=== PATIENT | male | born 1960 | race Caucasian/White ===

== ENCOUNTER 2021-11-05 08:15 | Inpatient (IN) | payer MEDICARE ==
--- NOTE | 2021-11-05 09:26 | ED Physician Documentation ---
History of Present Illness - Stated complaint Stated Complaint: C+ SHORT OF BREATH - Chief complaint Chief Complaint: Resp - History obtained from History obtained from: Patient - History of Present Illness Timing: Today Pain level max: 0 Pain level now: 0 - Additonal information Additional information: Patient is a 61-year-old male who presents to the emergency department with increasing breathing difficulties over the past 3 weeks. He states he was diagnosed with COVID-19 3 weeks ago. He is unvaccinated. He states that the fevers and cough have improved but the dyspnea has continued. He does have a history of crack cocaine use, has been clean for over 10 years. He also smokes cigarettes, but quit about 3 weeks ago when he became too sick to smoke. Worse with exertion, better with rest. Does not use home oxygen. Has used inhalers in the past when he has been sick. Review of Systems Ten Systems: 10 systems reviewed and negative Constitutional: denies: Fever, Chills Ears: denies: Ear pain Nose: denies: Rhinorrhea / runny nose, Congestion Throat: denies: Sore throat Cardiac: denies: Chest pain / pressure Respiratory: reports: Dyspnea. denies: Cough, Hemoptysis, Wheezing GI: denies: Abdominal Pain, Nausea, Vomiting, Diarrhea Skin: denies: Rash Musculoskeletal: denies: Neck pain, Back pain Neurologic: denies: Headache PD PAST MEDICAL HISTORY - Past Medical History Past Medical History: Yes Cardiovascular: High cholesterol - Allergies Allergies/Adverse Reactions: Allergies Allergy/AdvReac Type Severity Reaction Status Date / Time No Known Drug Allergies Allergy Verified 11/05/21 08:55 - Social History Does the pt smoke?: Yes Smoking Status: Current every day smoker Does the pt have substance abuse?: No Substance Use and Type: Cocaine/Crack PD ED PE NORMAL - Vitals Vital signs reviewed: Yes - General General: Alert and oriented X 3, No acute distress - HEENT HEENT: Moist mucous membranes - Neck Neck: Supple, no meningeal sign - Cardiac Cardiac: RRR, Strong equal pulses - Respiratory Respiratory: No respiratory distress, Clear bilaterally - Abdomen Abdomen: Soft, Non tender, Non distended - Derm Derm: Warm and dry - Neuro Neuro: Alert and oriented X 3 Results - Vitals Vitals: Vital Signs - 24 hr 11/05/21 11/05/21 11/05/21 08:56 09:04 09:34 Temperature 36.5 C Heart Rate 66 66 60 Respiratory 30 H 26 H 17 Rate Blood Pressure 137/78 H 126/80 128/70 O2 Saturation 80 L 93 95 11/05/21 11/05/21 11/05/21 10:04 10:30 11:00 Temperature 36.6 C Heart Rate 61 63 62 Respiratory 14 16 62 H Rate Blood Pressure 112/79 115/78 104/76 O2 Saturation 93 93 94 Oxygen O2 Source Nasal cannula Oxygen Flow Rate 2 - Labs Labs: Laboratory Tests 11/05/21 11/05/21 11/05/21 09:34 09:40 09:40 WBC 6.7 RBC 4.19 L Hgb 14.2 Hct 42.7 MCV 101.9 H MCH 33.9 H MCHC 33.3 RDW 14.1 Plt Count 276 MPV 10.3 Neut # (Auto) 4.7 Lymph # (Auto) 1.0 L [place] # (Auto) 0.5 Eos # (Auto) 0.4 Baso # (Auto) 0.1 Absolute Nucleated RBC 0.00 Nucleated RBC % 0.0 Sodium 141 Potassium 4.1 Chloride 105 Carbon Dioxide 27 Anion Gap 9.0 BUN 19 Creatinine 1.1 Estimated GFR (MDRD) 68 L Glucose 107 H Lactic Acid Calcium 9.0 Total Bilirubin 0.9 AST 32 ALT 42 Alkaline Phosphatase 84 Total Protein 7.0 Albumin 3.6 Globulin 3.4 Albumin/Globulin Ratio 1.1 Lipase 31 Nasal Adenovirus (PCR) NOT DETECTED Nasal B. parapertussis DNA (PCR) NOT DETECTED Nasal Coronavir 229E PCR NOT DETECTED Nasal Coronavir HKU1 PCR NOT DETECTED Nasal Coronavir NL63 PCR NOT DETECTED Nasal Coronavir OC43 PCR NOT DETECTED Nasal Enterovir/Rhinovir PCR NOT DETECTED Nasal Influenza B PCR NOT DETECTED Nasal Influenza A PCR NOT DETECTED Nasal Parainfluen 1 PCR NOT DETECTED Nasal Parainfluen 2 PCR NOT DETECTED Nasal Parainfluen 3 PCR NOT DETECTED Nasal Parainfluen 4 PCR NOT DETECTED Nasal RSV (PCR) NOT DETECTED Nasal B.pertussis DNA PCR NOT DETECTED Nasal C.pneumoniae (PCR) NOT DETECTED Shane Human Metapneumo PCR NOT DETECTED Nasal M.pneumoniae (PCR) NOT DETECTED Nasal SARS-CoV-2 (PCR) NOT DETECTED 11/05/21 09:40 WBC RBC Hgb Hct MCV MCH MCHC RDW Plt Count MPV Neut # (Auto) Lymph # (Auto) [place] # (Auto) Eos # (Auto) Baso # (Auto) Absolute Nucleated RBC Nucleated RBC % Sodium Potassium Chloride Carbon Dioxide Anion Gap BUN Creatinine Estimated GFR (MDRD) Glucose Lactic Acid 1.5 Calcium Total Bilirubin AST ALT Alkaline Phosphatase Total Protein Albumin Globulin Albumin/Globulin Ratio Lipase Nasal Adenovirus (PCR) Nasal B. parapertussis DNA (PCR) Nasal Coronavir 229E PCR Nasal Coronavir HKU1 PCR Nasal Coronavir NL63 PCR Nasal Coronavir OC43 PCR Nasal Enterovir/Rhinovir PCR Nasal Influenza B PCR Nasal Influenza A PCR Nasal Parainfluen 1 PCR Nasal Parainfluen 2 PCR Nasal Parainfluen 3 PCR Nasal Parainfluen 4 PCR Nasal RSV (PCR) Nasal B.pertussis DNA PCR Nasal C.pneumoniae (PCR) Shane Human Metapneumo PCR Nasal M.pneumoniae (PCR) Nasal SARS-CoV-2 (PCR) - Rads (name of study) cxr Radiology: Final report received, EMP read contemporaneously, See rad report (B pneumonia) PD MEDICAL DECISION MAKING - ED course Complexity details: reviewed results, re-evaluated patient, considered differential, d/w patient ED course: 61-year-old male with 3 weeks of Covid illness. No fevers. No cough but does have continuing dyspnea. He appears to have bilateral pneumonia on chest x-ray. Unclear if this is bacterial or viral pneumonia. He is continuing to be hypoxic and requiring supplemental oxygen. Does not normally require oxygen. He is out of the window for MAB therapy. He is also requiring supplemental oxygen so would not qualify for that either. We will place the patient in the hospital for further care. Discussed the case with Dr. Norris, hospitalist accepts. Antibiotics held at this time given that this is unclear if this is bacterial or viral. This document was made in part using voice recognition software. While efforts are made to proofread this document, sound alike and grammatical errors may occur. Departure - Departure Disposition: 64 [facility] DC/Xfer Clinical Impression: Hypoxemia, COVID-19 Pneumonia Qualifiers: Pneumonia type: due to unspecified organism Laterality: bilateral Lung location: lower lobe of lung Qualified Code(s): J18.9 - Pneumonia, unspecified organism Condition: Stable
[2021-11-05 09:49] LABS: BASOPHILS # (AUTO) 0.1 10^3/uL (0.0-0.1); BASOPHILS % (AUTO) 0.9 %; EOSINOPHILS # (AUTO) 0.4 10^3/uL (0.0-0.7); EOSINOPHILS % (AUTO) 6.6 %; HCT - HEMATOCRIT 42.7 % (42.0-52.0); HGB - HEMOGLOBIN 14.2 g/dL (14.0-18.0); MEAN CORPUSCULAR HEMOGLOBIN 33.9 pg (27.0-31.0); MEAN CORPUSCULAR HGB CONC 33.3 g/dL (32.0-36.0); MEAN CORPUSCULAR VOLUME 101.9 fL (80.0-94.0); MEAN PLATELET VOLUME 10.3 fL (7.4-11.4); MONOCYTES # (AUTO) 0.5 10^3/uL (0.0-1.0); MONOCYTES % (AUTO) 7.3 %; NEUTROPHILS # (AUTO) 4.7 10^3/uL (1.5-6.6); NEUTROPHILS % (AUTO) 69.9 %; PLT - PLATELET COUNT 276 10^3/uL (130-450); RED BLOOD COUNT 4.19 10^6/uL (4.70-6.10); RED CELL DISTRIBUTION WIDTH 14.1 % (12.0-15.0); WHITE BLOOD COUNT 6.7 x10^3/uL (4.8-10.8)
[2021-11-05 10:04] LABS: ALBUMIN 3.6 g/dL (3.2-5.5); ALBUMIN/GLOBULIN RATIO 1.1 (1.0-2.2); BILIRUBIN,TOTAL 0.9 mg/dL (0.2-1.0); CREATININE 1.1 mg/dL (0.6-1.2); POTASSIUM 4.1 mmol/L (3.5-5.0)
--- NOTE | 2021-11-05 10:15 | XRAY Report ---
PROCEDURE: Chest 1 View X-Ray INDICATIONS: hypoxia, dyspnea, +covid TECHNIQUE: One view of the chest was acquired. COMPARISON: None FINDINGS: Surgical changes and devices: None. Lungs and pleura: No pleural effusions or pneumothorax. Moderate bilateral basilar predominant retic ulonodular opacity. Mediastinum: Mediastinal contours appear normal. Heart size is normal. Bones and chest wall: No suspicious bony lesions. Overlying soft tissues appear unremarkable. IMPRESSION: Moderate bilateral pneumonia. Reviewed by: Xander Brennan MD on 11/05/2021 9:14 AM [facility] Approved by: Xander Brennan MD on 11/05/2021 9:14 AM [facility] Station ID: [id number]
[2021-11-05 10:45] LABS: CORONAVIRUS 229E-RESP PCR NOT DETECTED; CORONAVIRUS HKU1-RESP PCR NOT DETECTED
[2021-11-05 10:46] LABS: B. PARAPERTUSSIS- RESP PCR PAN NOT DETECTED; B. PERTUSSIS- RESP PCR PANEL NOT DETECTED; C. PNEUMONIAE- RESP PCR PANEL NOT DETECTED; CORONAVIRUS NL63-RESP PCR NOT DETECTED; CORONAVIRUS OC43-RESP PCR NOT DETECTED; HUMAN METAPNEUMOVIRUS NOT DETECTED; INFLUENZA A- RESP PCR PANEL NOT DETECTED; INFLUENZA B - RESP PCR PANEL NOT DETECTED; M. PNEUMONIAE- RESP PCR PANEL NOT DETECTED; PARAINFLUENZA VIRUS 1 NOT DETECTED; PARAINFLUENZA VIRUS 2 NOT DETECTED; PARAINFLUENZA VIRUS 3 NOT DETECTED; PARAINFLUENZA VIRUS 4 NOT DETECTED; RHINOVIRUS/ENTEROVIRUS NOT DETECTED; RSV- RESP PCR PANEL NOT DETECTED; SARS-CoV-2 -RESP PCR PANEL NOT DETECTED
[2021-11-05] MEDS ORDERED: ONDANSETRON ODT 4 MG TABLET TL PRN (11:21)
[2021-11-05] MEDS ORDERED: ONDANSETRON 4 MG/2 ML VIAL IVP PRN (11:21)
[2021-11-05] MEDS ORDERED: SODIUM CHLORIDE FLUSH 0.9% 10 ML SYRINGE IVP PRN (11:21)
[2021-11-05] MEDS ORDERED: ACETAMINOPHEN 325 MG TABLET PO PRN (11:21)
--- NOTE | 2021-11-05 11:36 | HISTORY & PHYSICAL EXAMINATION ---
Chief Complaint - Chief Complaint Chief Complaint: short of breath History of Present Illness - Admitted From Admitted From:: home - History Obtained From Records Reviewed: [facility] History obtained from: patient and Dr. Guillory Exam Limitations: none - History of Present Illness HPI Comment/Other: The patient lives in [facility] and is here visiting [facility] for his time share that he comes to every quarter. He became ill with Covid about 4 weeks ago. Had it for about a week when he self tested from an [id number] test and Covid positive. At that time he had severe fever, muscle aches, loss of smell and taste, stopped eating. Lost about 28 pounds. Appetite is slowly coming back. The cough is been nonstop. And he has been exhausted and short of breath. No real phlegm production. is been trying to convince him to be seen for quite some time but he drove to the [place] for vacation, and then decided to check his pulse oximeter here. When he initially checked it it was 78%. Sometimes he can get it up to 85 to 88%. Today he was so short of breath he finally came in. In triage he was with labored respirations. O2 sat was 80% and oxygen was placed immediately. He smokes on a daily basis. Stop smoking the day he got sick with Covid. He started smoking at the age of 30 and smokes a pack a day. He is also a cocaine abuser in the past. Started snorting cocaine at the age of 16. Then he started smoking cocaine at the age of 30 and smoked daily until the age of 50. He is 11 years past that. He has psoriatic arthritis and takes methotrexate on a daily basis with folic acid.He is unvaccinated as a conscious decision. His 's cousin who is a mix chemist got the Covid vaccine and 3 days later. He just "dropped ". Pathology showed that it was related to hypercoagulable disorder from the vaccine. Ever since then the family's been pretty rattled and he just felt like he was not a candidate nor his . In the emergency room temperature was 36.5. Heart rate 66. Respirations 30. Blood pressure 137/78. O2 sat 80%. Chest x-ray shows bilateral infiltrates. He is SARS Covid negative on our respiratory PCR panel. White cell count is normal at 6.7. INR is 1.3. D-dimer 515. History - Past Medical History Cardiovascular: reports: High cholesterol Respiratory: reports: Other (Probable inhalation injury from constant inhalation of cocaine) Neuro: reports: None Endocrine/Autoimmune: reports: None GI: reports: None : reports: None HEENT: reports: None Psych: reports: Anxiety, Bipolar disorder (Very severe during his teen years. Most likely why he did substance abuse. Once he got older and stopped abusing substances at the age of 50, he has not needed medications. He last saw psychiatrist about 11 years ago.), Obsessive compulsive disorder Musculoskeletal: reports: Other (Psoriatic arthritis for which he takes methotrexate, folic acid) Derm: reports: Psoriasis MRSA Hx?: No - Past Surgical History Ortho: reports: Other (Right thumb tendon tear at the age of 3) - Family & Social History Family History Comment/Other: Mom is 91 years old, porcine valve replacement, status post pacemaker, chronic congestive heart failure. Dad at age 58 in a car accident. 2 sisters. Both obese, diabetic. One had heart ventricular repair to improve chamber size and pump function, and bariatric surgery. 1 brother has also had a valve repair, arrhythmia, congestive heart failure. One child who is healthy Living arrangement: At home Living Situation: With spouse/s.o. Social History Notes: 1 pack/day smoker starting at the age of 30 and quit 30 days ago. Regular cocaine user with snorting starting at the age of 16, then started smoking it until the age of 50. Occasionally used methamphetamines but he did not like it and did not do it more than once. He shot it up once. He drinks 1 beer every 6 months. He was a binge drinker in high school. Did not d rink very much once he started doing cocaine. 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 from his first . his second 18 years ago. He was able to stop doing substance abuse when got entered into his life. When he first quit he was 172 pounds, and went all the way up to 224 pounds until Covid got a hold of him. - Substance History Use: Uses substance without health or social issues: Tobacco Abuse: Recurrent use of substance despite neg consequences: NONE Dependence: Experiences withdrawal or developed tolerances: NONE - POLST Patient has POLST: No POLST Status: Full Code Meds/Allgy - Home Medications Home Medications: Ambulatory Orders Medication Instructions Recorded Confirmed Atorvastatin [Lipitor] 20 mg PO QPM 11/05/21 11/05/21 Folic Acid 2 mg PO SUMOTUWEFRSA 11/05/21 11/05/21 Ibuprofen [Motrin] 600 mg PO TID PRN 11/05/21 11/05/21 Methotrexate [Methotrexate Sodium] 15 mg PO TH 11/05/21 11/05/21 - Allergies Allergies/Adverse Reactions: Allergies Allergy/AdvReac Type Severity Reaction Status Date / Time No Known Drug Allergies Allergy Verified 11/05/21 08:55 Review of Systems - Constitutional Constitutional: reports: Fatigue, Fever, Chills, Malaise, Weakness, Poor appetite, Weight loss - Eyes Eyes: reports: Corrective lenses. denies: Pain, Irritation, Amaurosis - Ears, Nose & Throat Ears, Nose & Throat: denies: Ear pain, Hearing loss, Hearing aids, Vertigo, Nasal pain, Nasal discharge - Cardiovascular Cariovascular: reports: Exertional dyspnea, Decr. exercise tolerance. denies: Irregular heart rate, Palpitations, Chest pain - Respiratory Respiratory: reports: Cough, SOB at rest, SOB with exertion. denies: Sputum production, Wheezing, Snoring - Gastrointestinal Gastrointestinal: denies: Abdominal pain, Abdominal distention, Constipation, D iarrhea, Change in bowel habits - Genitourinary Genitourinary: denies: Dysuria, Frequency, Urgency, Hematuria - Musculoskeletal Musculoskeletal: reports: Muscle aches, Joint pain - Integumentary Integumentary: reports: Rash - Neurological Neurological: reports: General weakness. denies: Focal weakness, Headache, Dizziness, Memory problems, Pre-existing deficit - Psychiatric Psychiatric: denies: Depression, Anxiety, Suicidal, Delusions, Hallucinations - Endocrine Endocrine: denies: Polyuria, Polydypsia, Polyphagia - Hematologic/Lymphatic Hematologic/Lymphatic: denies: Anemia, Bruising, Petechiae Prior Level of Functionality: Lives in his own home in [place] with his second . He is completely deep independent with activities of daily living. Drives a car, pays bills, does housework, and is not limited by much. Occasionally his joints hurt from psoriatic arthritis but that he does not use durable medical equipment. Exam - Vital Signs Reviewed Vital Signs: Yes Vital Signs: Vital Signs x48h Temp Pulse Resp BP Pulse Ox 11/05/21 11:00 62 62 H 104/76 94 11/05/21 10:30 63 16 115/78 93 11/05/21 10:04 36.6 C 61 14 112/79 93 11/05/21 09:34 60 17 128/70 95 11/05/21 09:04 66 26 H 126/80 93 11/05/21 08:56 36.5 C 66 30 H 137/78 H 80 L - Physical Exam General Appearance: positive: No acute distress, Alert, Other (Pale, fatigued appearing white male who looks stated age but is in good spirits, chatting, laughing spontaneously) Eyes Bilateral: positive: PERRL, EOMI ENT: positive: Pharynx nml, No signs of dehydration Neck: positive: No JVD. negative: Stiff neck Respiratory: positive: No respiratory distress, Rhonchi. negative: Wheezes, Rales Cardiovascular: positive: Regular rate & rhythm, Systolic murmur. negative: Gallop/S4, Friction rub Abdomen: positive: Non-tender, No organomegaly, Nml bowel sounds, No distention Skin: positive: Warm, Dry, Other (Minimal psoriatic changes) Extremities: positive: Non-tender, Full ROM, No pedal edema Neurologic/Psychiatric: positive: Oriented x3, CN's nml (2-12), Motor nml, Sensation nml Conclusion/Plan - Problem List (1) Hypoxemia Conclusion/Plan: Due to pneumonia. He does not have groundglass opacities of viral p neumonia/COVID-19. He has more the changes of consolidation of a bacterial pneumonia or a secondary pneumonia in someone who was already ill. In spite of his hypoxemia, he does not appear to be in respiratory failure. Plan: Supplement as needed. CODE STATUS discussed and he is a full code with i ntubation if required (2) Pneumonia Conclusion/Plan: At this time the question for this gentleman is whether he truly had Covid pneumonia due to Covid positive status that we cannot verify. Or does he have a community-acquired pneumonia. Or does he have embolic phenomena from a person who use to use cocaine. Plan: Inpatient status Oxygen supplementation CT of the chest Echocardiogram when available on Sunday (today is Sunday) Started on Rocephin and azithromycin but I will think about this carefully he may need expanded coverage in view of recreational substance abuse Sputum cultures and look for fungal infection. Blood cultures already done Qualifiers: Pneumonia type: due to unspecified organism Laterality: bilateral Lung location: lower lobe of lung Qualified Code(s): J18.9 - Pneumonia, unspecified organism (3) History of 2019 novel coronavirus disease (COVID-19) Conclusion/Plan: He was positive over 3 weeks ago. Currently negative. Nevertheless we will run the lab panel as if he does have Covid and check CPK, troponin, D-dimer, C- reactive protein. If D-dimer is high, he may require therapeutic Lovenox as opposed to preventative DVT. I have started him on Decadron. Depending on what the CAT scan shows, I may stop that. In either case, he is not a candidate for remdesivir. (4) Immunocompromised state due to drug therapy Conclusion/Plan: This gentleman is on methotrexate. He is checked quarterly. He sees Personal Care Aide Justa Patterson MD at the [facility] [address]. She checks in chest xray yearly and was due to get one done later this month. Asks that we send our current chest xray to her. - Lab Results Lab results reviewed: Yes Fish Bones: 11/05/21 09:40 11/05/21 09:40 - Diagnostic Imaging Results Diagnostic Imaging Results: positive: Final report reviewed Diagnostic Imaging Results Comments: Moderate bilateral consolidation with pneumonia. Reticular nodular opacities. - EKG Results EKG Interpreted Independently: No Core Measures - Anticipated LOS I expect patient to be DC'd or transferred within 96 hours.: Yes - DVT/VTE - Prophylaxis VTE/DVT Device ordered at admit?: Yes
[2021-11-05] MEDS ORDERED: IOPAMIDOL-300 100 ML VIAL ONE (11:49)
[2021-11-05] MEDS ORDERED: ENOXAPARIN 40 MG/0.4 ML SYRINGE SUBQ SCH (12:00)
[2021-11-05 12:17] LABS: CK- CREATINE KINASE 48 IU/L (22-269)
[2021-11-05 12:18] LABS: CRP - C-REACTIVE PROTEIN < 1.0 mg/dL (0-1.0)
[2021-11-05 12:19] LABS: D-DIMER 515.9 ng/mL (200.0-255.0)
[2021-11-05] MEDS ORDERED: IOPAMIDOL-300 100 ML VIAL IVP ONE (12:23)
[2021-11-05 12:26] LABS: INR 1.3 (0.8-1.2); PT - PROTHROMBIN TIME 14.2 secs (9.9-12.6)
--- NOTE | 2021-11-05 12:42 | CT Report ---
PROCEDURE: CHEST W INDICATIONS: infiltrates CONTRAST: IV CONTRAST: Isovue 300 ml: 100 PO CONTRAST: *NO PO CONTRAST TECHNIQUE: After the administration of intravenous contrast, 1 mm axial images were acquired from the pulmonary apices through the posterior costophrenic angles. Axial 5 mm soft tissue kernel reconstructions were performed as well as 8 mm axial MIP and coronal and sagittal 5 mm reformations. For radiation dose reduction, the following was used: automated exposure control, adjustment of mA and/or kV according to patient size. COMPARISON: Chest x-ray dated 11/05/2021. FINDINGS: Image quality: Excellent. Lungs and pleura: Moderate bibasilar and peripheral predominant pulmonary airspace opacity is present , as before. No pleural effusions or pneumothorax. Central and peripheral airways are patent and nor mal in caliber. Mediastinum: Heart size is normal. Mild calcification of the coronary vasculature. No pericardial e ffusion. No mediastinal or hilar adenopathy by size criteria. Thoracic aorta and central pulmonary arteries are normal in size. Esophagus is normal in caliber. No hiatal hernia. Bones and chest wall: No suspicious bony lesions. No vertebral body compression fractures. No axil karlene or supraclavicular adenopathy by size criteria. The thyroid is normal in size and there are no incidental findings.. Abdomen: Visualized upper abdominal solid organs appear normal. Upper abdominal bowel loops are nor mal in caliber. IMPRESSION: No change in bilateral pneumonia. 2. Coronary artery disease. CLINICAL RECOMMENDATION STATEMENTS: In patients <35 years with an ITN detected on CT, MRI, or extrathyroidal ultrasound, the Committee re commends further evaluation with dedicated thyroid ultrasound if the nodule is "e1 cm and has no susp icious imaging features, and if the patient has normal life expectancy. In patients "e35 years with an ITN detected on CT, MRI, or extrathyroidal ultrasound, the Committee r ecommends further evaluation with dedicated thyroid ultrasound if the nodule is "e1.5 cm and has no s uspicious imaging features, and if the patient has normal life expectancy. (ACR, 2014) Reviewed by: Xander Brennan MD on 11/05/2021 11:41 AM [facility] Approved by: Xander Brennan MD on 11/05/2021 11:41 AM [facility] Station ID: [id number]
[2021-11-05] MEDS: cefTRIAXone 1 GM in SODIUM CHLORIDE 0.9% MINIBAG 100 ML IV SCH (12:55)
[2021-11-05] MEDS: LACTATED RINGERS 1,000 ML IV SCH (12:56)
[2021-11-05] MEDS: DEXAMETHASONE 4 MG/ML VIAL IVP SCH (12:59)
[2021-11-05] MEDS: ENOXAPARIN 100 MG/ML SYRINGE SUBQ SCH ×2 (13:08→20:16)
[2021-11-05] MEDS: AZITHROMYCIN INJ 500 MG in SODIUM CHLORIDE 0.9% 250 ML IV SCH (13:50)
[2021-11-05] MEDS: SODIUM CHLORIDE FLUSH 0.9% 10 ML SYRINGE IVP SCH (16:34)
[2021-11-05] MEDS: oxyCODONE 5 MG TABLET PO PRN (22:14)
[2021-11-06] MEDS: LACTATED RINGERS 1,000 ML IV SCH (01:22)
[2021-11-06] MEDS: SODIUM CHLORIDE FLUSH 0.9% 10 ML SYRINGE IVP SCH ×3 (01:23→20:54)
[2021-11-06] MEDS: oxyCODONE 5 MG TABLET PO PRN ×2 (04:24→10:31)
[2021-11-06 05:54] LABS: BASOPHILS % (AUTO) 0.2 %; HCT - HEMATOCRIT 38.5 % (42.0-52.0); LYMPHOCYTES # (AUTO) 0.9 10^3/uL (1.5-3.5); MEAN CORPUSCULAR HGB CONC 33.8 g/dL (32.0-36.0); MEAN CORPUSCULAR VOLUME 100.8 fL (80.0-94.0); MEAN PLATELET VOLUME 10.8 fL (7.4-11.4); MONOCYTES # (AUTO) 0.4 10^3/uL (0.0-1.0); MONOCYTES % (AUTO) 3.2 %; NEUTROPHILS # (AUTO) 9.6 10^3/uL (1.5-6.6); PLT - PLATELET COUNT 285 10^3/uL (130-450); RED BLOOD COUNT 3.82 10^6/uL (4.70-6.10); RED CELL DISTRIBUTION WIDTH 13.7 % (12.0-15.0); WHITE BLOOD COUNT 10.9 x10^3/uL (4.8-10.8)
[2021-11-06 06:12] LABS: BUN - BLOOD UREA NITROGEN 15 mg/dL (6-20); CALCIUM 8.9 mg/dL (8.5-10.3); CARBON DIOXIDE - CO2 26 mmol/L (21-32); CHLORIDE 102 mmol/L (101-111); CREATININE 0.9 mg/dL (0.6-1.2); GFR - MDRD 85 (>89); GLUCOSE 126 mg/dL (70-100); POTASSIUM 4.3 mmol/L (3.5-5.0); SODIUM 137 mmol/L (135-145)
[2021-11-06 06:41] LABS: CRP - C-REACTIVE PROTEIN < 1.0 mg/dL (0-1.0)
--- NOTE | 2021-11-06 08:03 | PROVIDER PROGRESS NOTE ---
Subjective - Prog Note Date Prog Note Date: 11/06/21 Prog Note Time: 08:02 - Subjective Pt reports feeling: Improved Subjective: His main complaint was shortness of breath before he came in. Minimal cough. Appetite was slightly down. With the oxygen he feels really good. He has been able to eat his meals. He ambulates in the room without any assistance or fatigue. He has had no fevers. His main requirement while he has been here is been oxygen. Cough is mild. Nonproductive. No abdominal pain, chest pain, palpitations. No edema. Current Medications - Current Medications Current Medications: Active Medications Acetaminophen (Acetaminophen 325 Mg Tablet) 650 mg PO Q4HR PRN PRN Reason: Pain 1 to 4 Last Admin: 11/05/21 20:15 Dose: 650 mg Documented by: Dexamethasone (Dexamethasone 4 Mg/Ml Vial) 6 mg IVP DAILY [facility] Last Admin: 11/05/21 12:59 Dose: 6 mg Documented by: Enoxaparin Sodium (Enoxaparin 100 Mg/Ml Syringe) 100 mg SUBQ BID [facility] Last Admin: 11/05/21 20:16 Dose: 100 mg Documented by: Ceftriaxone Sodium 1 gm/ (Sodium Chloride) 100 mls @ 200 mls/hr IV DAILY [facility] Last Infusion: 11/05/21 13:46 Dose: Infused Documented by: Azithromycin 500 mg/ Sodium (Chloride) 250 mls @ 250 mls/hr IV DAILY [facility] Stop: 11/07/21 09:59 Last Infusion: 11/05/21 15:18 Dose: Infused Documented by: Ondansetron HCl (Ondansetron Odt 4 Mg Tablet) 4 mg TL Q6HR PRN PRN Reason: Nausea / Vomiting Ondansetron HCl (Ondansetron 4 Mg/2 Ml Vial) 4 mg IVP Q6HR PRN PRN Reason: Nausea / Vomiting Oxycodone HCl (Oxycodone 5 Mg Tablet) 5 mg PO Q4HR PRN PRN Reason: Pain 5 to 7 Last Admin: 11/06/21 04:24 Dose: 5 mg Documented by: Sodium Chloride (Sodium Chloride Flush 0.9% 10 Ml Syringe) 10 ml IVP PRN PRN PRN Reason: NEEDED PER PROVIDER ORDERS Sodium Chloride (Sodium Chloride Flush 0.9% 10 Ml Syringe) 10 ml IVP 0100 ,0900,1700 [facility] Last Admin: 11/06/21 01:23 Dose: 10 ml Documented by: Atorvastatin [Lipitor] 20 mg PO QPM 11/05/21 Folic Acid 2 mg PO SUMOTUWEFRSA 11/05/21 Ibuprofen [Motrin] 600 mg PO TID PRN 11/05/21 Methotrexate [Methotrexate Sodium] 15 mg PO TH 11/05/21 Objective - Vital Signs/Intake & Output Reviewed Vital Signs: Yes Vital Signs: Vital Signs x48h Temp Pulse Resp BP Pulse Ox 11/06/21 07:36 36.3 C L 63 18 107/55 L 89 L Intake & Output: Intake & Output 11/03/21 11/04/21 11/05/21 11/06/21 23:59 23:59 23:59 23:59 Intake Total 1716.667 383.333 Balance 1716.667 383.333 - Objective General Appearance: positive: No acute distress, Alert, Other (Very comfortable in his bed, watching TV. Gets up to demonstrate independence and sits in a chair with only minimal desaturation. Recovers very quickly. Does not get tachycardic or tachypneic.) Eyes Bilateral: positive: PERRL, EOMI ENT: positive: No signs of dehydration Neck: positive: No JVD. negative: Stiff neck Respiratory: positive: No respiratory distress, Rhonchi (Both midlung petersen. They clear with a deep cough.), Other (Has a completely normal conversation and a normal pace without any tachypnea or increased respiratory effort.). negative: Wheezes, Rales Cardiovascular: positive: Regular rate & rhythm, No murmur, No gallop. negative: Tachycardia Abdomen: positive: Non-tender, No organomegaly, Nml bowel sounds, No distention Skin: positive: Warm, Dry Extremities: positive: Full ROM, No pedal edema Neurologic/Psychiatric: positive: Oriented x3, CN's nml (2-12), Motor nml - Lab Results Fish Bones: 11/06/21 04:48 11/06/21 04:48 Other Labs: Lab Results x24hrs 11/06/21 11/06/21 11/05/21 Range/Units 04:48 04:48 11:38 WBC 10.9 H (4.8-10.8) x10^3/uL RBC 3.82 L (4.70-6.10) 10^6/uL Hgb 13.0 L (14.0-18.0) g/dL Hct 38.5 L (42.0-52.0) % MCV 100.8 H (80.0-94.0) fL MCH 34.0 H (27.0-31.0) pg MCHC 33.8 (32.0-36.0) g/dL RDW 13.7 (12.0-15.0) % Plt Count 285 (130-450) 10^3/uL MPV 10.8 (7.4-11.4) fL Neut # (Auto) 9.6 H (1.5-6.6) 10^3/uL Lymph # (Auto) 0.9 L (1.5-3.5) 10^3/uL Colbert # (Auto) 0.4 (0.0-1.0) 10^3/uL Eos # (Auto) 0.0 (0.0-0.7) 10^3/uL Baso # (Auto) 0.0 (0.0-0.1) 10^3/uL Absolute Nucleated RBC 0.00 x10^3/uL Nucleated RBC % 0.0 /100WBC PT (9.9-12.6) secs INR (0.8-1.2) D-Dimer (200.0-255.0) ng/mL Sodium 137 (135-145) mmol/L Potassium 4.3 (3.5-5.0) mmol/L Chloride 102 (101-111) mmol/L Carbon Dioxide 26 (21-32) mmol/L Anion Gap 9.0 (6-13) BUN 15 (6-20) mg/dL Creatinine 0.9 (0.6-1.2) mg/dL Estimated GFR (MDRD) 85 L (>89) Glucose 126 H (70-100) mg/dL Lactic Acid (0.5-2.2) mmol/L Calcium 8.9 (8.5-10.3) mg/dL Total Bilirubin (0.2-1.0) mg/dL AST (10-42) IU/L ALT (10-60) IU/L Alkaline Phosphatase (42-121) IU/L Total Creatine Kinase 48 (22-269) IU/L Troponin I High Sens (2.3-19.7) ng/L C-Reactive Protein < 1.0 < 1.0 (0-1.0) mg/dL Total Protein (6.7-8.2) g/dL Albumin (3.2-5.5) g/dL Globulin (2.1-4.2) g/dL Albumin/Globulin Ratio (1.0-2.2) Lipase (22-51) U/L Nasal Adenovirus (PCR) Nasal B. parapertussis DNA (PCR) Nasal Coronavir 229E PCR Nasal Coronavir HKU1 PCR Nasal Coronavir NL63 PCR Nasal Coronavir OC43 PCR Nasal Enterovir/Rhinovir PCR Nasal Influenza B PCR Nasal Influenza A PCR Nasal Parainfluen 1 PCR Nasal Parainfluen 2 PCR Nasal Parainfluen 3 PCR Nasal Parainfluen 4 PCR Nasal RSV (PCR) Nasal B.pertussis DNA PCR Nasal C.pneumoniae (PCR) Shane Human Metapneumo PCR Nasal M.pneumoniae (PCR) Nasal SARS-CoV-2 (PCR) 11/05/21 11/05/21 11/05/21 Range/Units 11:38 11:38 09:40 WBC (4.8-10.8) x10^3/uL RBC (4.70-6.10) 10^6/uL Hgb (14.0-18.0) g/dL Hct (42.0-52.0) % MCV (80.0-94.0) fL MCH (27.0-31.0) pg MCHC (32.0-36.0) g/dL RDW (12.0-15.0) % Plt Count (130-450) 10^3/uL MPV (7.4-11.4) fL Neut # (Auto) (1.5-6.6) 10^3/uL Lymph # (Auto) (1.5-3.5) 10^3/uL Colbert # (Auto) (0.0-1.0) 10^3/uL Eos # (Auto) (0.0-0.7) 10^3/uL Baso # (Auto) (0.0-0.1) 10^3/uL Absolute Nucleated RBC x10^3/uL Nucleated RBC % /100WBC PT 14.2 H (9.9-12.6) secs INR 1.3 H (0.8-1.2) D-Dimer 515.9 H (200.0-255.0) ng/mL Sodium (135-145) mmol/L Potassium (3.5-5.0) mmol/L Chloride (101-111) mmol/L Carbon Dioxide (21-32) mmol/L Anion Gap (6-13) BUN (6-20) mg/dL Creatinine (0.6-1.2) mg/dL Estimated GFR (MDRD) (>89) Glucose (70-100) mg/dL Lactic Acid 1.5 (0.5-2.2) mmol/L Calcium (8.5-10.3) mg/dL Total Bilirubin (0.2-1.0) mg/dL AST (10-42) IU/L ALT (10-60) IU/L Alkaline Phosphatase (42-121) IU/L Total Creatine Kinase (22-269) IU/L Troponin I High Sens 4.4 (2.3-19.7) ng/L C-Reactive Protein (0-1.0) mg/dL Total Protein (6.7-8.2) g/dL Albumin (3.2-5.5) g/dL Globulin (2.1-4.2) g/dL Albumin/Globulin Ratio (1.0-2.2) Lipase (22-51) U/L Nasal Adenovirus (PCR) Nasal B. parapertussis DNA (PCR) Nasal Coronavir 229E PCR Nasal Coronavir HKU1 PCR Nasal Coronavir NL63 PCR Nasal Coronavir OC43 PCR Nasal Enterovir/Rhinovir PCR Nasal Influenza B PCR Nasal Influenza A PCR Nasal Parainfluen 1 PCR Nasal Parainfluen 2 PCR Nasal Parainfluen 3 PCR Nasal Parainfluen 4 PCR Nasal RSV (PCR) Nasal B.pertussis DNA PCR Nasal C.pneumoniae (PCR) Shane Human Metapneumo PCR Nasal M.pneumoniae (PCR) Nasal SARS-CoV-2 (PCR) 11/05/21 11/05/21 11/05/21 Range/Units 09:40 09:40 09:34 WBC 6.7 (4.8-10.8) x10^3/uL RBC 4.19 L (4.70-6.10) 10^6/uL Hgb 14.2 (14.0-18.0) g/dL Hct 42.7 (42.0-52.0) % MCV 101.9 H (80.0-94.0) fL MCH 33.9 H (27.0-31.0) pg MCHC 33.3 (32.0-36.0) g/dL RDW 14.1 (12.0-15.0) % Plt Count 276 (130-450) 10^3/uL MPV 10.3 (7.4-11.4) fL Neut # (Auto) 4.7 (1.5-6.6) 10^3/uL Lymph # (Auto) 1.0 L (1.5-3.5) 10^3/uL Colbert # (Auto) 0.5 (0.0-1.0) 10^3/uL Eos # (Auto) 0.4 (0.0-0.7) 10^3/uL Baso # (Auto) 0.1 (0.0-0.1) 10^3/uL Absolute Nucleated RBC 0.00 x10^3/uL Nucleated RBC % 0.0 /100WBC PT (9.9-12.6) secs INR (0.8-1.2) D-Dimer (200.0-255.0) ng/mL Sodium 141 (135-145) mmol/L Potassium 4.1 (3.5-5.0) mmol/L Chloride 105 (101-111) mmol/L Carbon Dioxide 27 (21-32) mmol/L Anion Gap 9.0 (6-13) BUN 19 (6-20) mg/dL Creatinine 1.1 (0.6-1.2) mg/dL Estimated GFR (MDRD) 68 L (>89) Glucose 107 H (70-100) mg/dL Lactic Acid (0.5-2.2) mmol/L Calcium 9.0 (8.5-10.3) mg/dL Total Bilirubin 0.9 (0.2-1.0) mg/dL AST 32 (10-42) IU/L ALT 42 (10-60) IU/L Alkaline Phosphatase 84 (42-121) IU/L Total Creatine Kinase (22-269) IU/L Troponin I High Sens (2.3-19.7) ng/L C-Reactive Protein (0-1.0) mg/dL Total Protein 7.0 (6.7-8.2) g/dL Albumin 3.6 (3.2-5.5) g/dL Globulin 3.4 (2.1-4.2) g/dL Albumin/Globulin Ratio 1.1 (1.0-2.2) Lipase 31 (22-51) U/L Nasal Adenovirus (PCR) NOT DETECTED Nasal B. parapertussis DNA (PCR) NOT DETECTED Nasal Coronavir 229E PCR NOT DETECTED Nasal Coronavir HKU1 PCR NOT DETECTED Nasal Coronavir NL63 PCR NOT DETECTED Nasal Coronavir OC43 PCR NOT DETECTED Nasal Enterovir/Rhinovir PCR NOT DETECTED Nasal Influenza B PCR NOT DETECTED Nasal Influenza A PCR NOT DETECTED Nasal Parainfluen 1 PCR NOT DETECTED Nasal Parainfluen 2 PCR NOT DETECTED Nasal Parainfluen 3 PCR NOT DETECTED Nasal Parainfluen 4 PCR NOT DETECTED Nasal RSV (PCR) NOT DETECTED Nasal B.pertussis DNA PCR NOT DETECTED Nasal C.pneumoniae (PCR) NOT DETECTED Shane Human Metapneumo PCR NOT DETECTED Nasal M.pneumoniae (PCR) NOT DETECTED Nasal SARS-CoV-2 (PCR) NOT DETECTED ABX Reporting Has patient been on IV antibiotics over the past 48 hours?: Yes Assessment/Plan - Problem List (1) Hypoxemia Impression: Due to pneumonia. He does not have groundglass opacities of viral pneumonia/COVID-19. He has more the changes of consolidation of a bacterial pneumonia or a secondary pneumonia in someone who was already ill. In spite of his hypoxemia, He continues to demonstrate a relatively normal exam. Plan: Supplement as needed. CODE STATUS discussed and he is a full code with intubation if required. I have asked him if you feels comfortable going home with oxygen since he is doing so well otherwise. He is enthusiastic about the idea of going home tomorrow. As such I will talk to respiratory therapy by doing a desat test and send him home with O2. He does live in [place] and will have to return the oxygen tanks to that facility once he is done with them. (2) Pneumonia Conclusion/Plan: At this time the question for this gentleman is whether he truly had Covid pneumonia due to Covid positive status that we cannot verify. Or does he have a community-acquired pneumonia. Or does he have embolic phenomena from a person who use to use cocaine. CT of the chest confirmed simple pneumonia. There has been no fever, elevated white cell count. He has only required oxygen supplementation. Our treatment has been IV azithromycin and he is day #2 today and to complete it with day #3 tomorrow. He will have a day #3 of Rocephin tomorrow. Sputum culture is growing gram-positive cocci and gram-negative bacilli. Once the identification comes in, I believe he can be sent home with oral antibiotics that cover the culture that we see. He can then follow-up with his primary care provider in the outpatient setting. If he does have recurrent problems, he can then be seen in follow-up for possible echocardiogram. Qualifiers: Pneumonia type: due to unspecified organism Laterality: bilateral Lung location: lower lobe of lung Qualified Code(s): J18.9 - Pneumonia, unspecified organism (3) History of 2019 novel coronavirus disease (COVID-19) Conclusion/Plan: He was positive over 3 weeks ago. Currently negative. C-reactive protein was less than 1 on admission and less than 1 today. CK is 48. Troponin is 4.4. D- dimer was 515 with an INR of 1.3. As such he was continued on prophylactic DVT anticoagulation. He was started on Decadron and he can continue that in the outpatient setting for total of 7 more days. (4) Immunocompromised state due to drug therapy Conclusion/Plan: This gentleman is on methotrexate. He is checked quarterly. He sees Chief Of Staff Justa Patterson MD at the [facility] on [place]. She checks in chest xray yearly and was due to get one done later this month. Asks t hat we send our current chest xray to her. That was done this morning.
[2021-11-06] MEDS: DEXAMETHASONE 4 MG/ML VIAL IVP SCH (09:05)
[2021-11-06] MEDS: ENOXAPARIN 100 MG/ML SYRINGE SUBQ SCH ×2 (09:05→20:54)
[2021-11-06] MEDS: cefTRIAXone 1 GM in SODIUM CHLORIDE 0.9% MINIBAG 100 ML IV SCH (09:06)
[2021-11-06] MEDS: AZITHROMYCIN INJ 500 MG in SODIUM CHLORIDE 0.9% 250 ML IV SCH (09:06)
[2021-11-06] MEDS: TEMAZEPAM 15 MG CAPSULE PO PRN (21:14)
[2021-11-07] MEDS: SODIUM CHLORIDE FLUSH 0.9% 10 ML SYRINGE IVP SCH ×3 (01:26→16:03)
[2021-11-07] MEDS: IBUPROFEN 400 MG TABLET PO PRN ×2 (05:26→20:11)
[2021-11-07 05:57] LABS: BASOPHILS % (AUTO) 0.2 %; EOSINOPHILS % (AUTO) 0.1 %; HCT - HEMATOCRIT 35.7 % (42.0-52.0); HGB - HEMOGLOBIN 12.1 g/dL (14.0-18.0); LYMPHOCYTES # (AUTO) 1.4 10^3/uL (1.5-3.5); LYMPHOCYTES % (AUTO) 9.3 %; MEAN CORPUSCULAR HGB CONC 33.9 g/dL (32.0-36.0); MEAN CORPUSCULAR VOLUME 100.3 fL (80.0-94.0); MEAN PLATELET VOLUME 10.9 fL (7.4-11.4); MONOCYTES # (AUTO) 0.5 10^3/uL (0.0-1.0); MONOCYTES % (AUTO) 3.5 %; NEUTROPHILS # (AUTO) 12.9 10^3/uL (1.5-6.6); NEUTROPHILS % (AUTO) 86.2 %; PLT - PLATELET COUNT 255 10^3/uL (130-450); RED BLOOD COUNT 3.56 10^6/uL (4.70-6.10); RED CELL DISTRIBUTION WIDTH 13.8 % (12.0-15.0); WHITE BLOOD COUNT 14.9 x10^3/uL (4.8-10.8)
[2021-11-07 06:17] LABS: BUN - BLOOD UREA NITROGEN 13 mg/dL (6-20); CALCIUM 8.8 mg/dL (8.5-10.3); CARBON DIOXIDE - CO2 27 mmol/L (21-32); CHLORIDE 105 mmol/L (101-111); CREATININE 0.8 mg/dL (0.6-1.2); GFR - MDRD 98 (>89); GLUCOSE 133 mg/dL (70-100); SODIUM 139 mmol/L (135-145)
[2021-11-07 06:40] LABS: CRP - C-REACTIVE PROTEIN < 1.0 mg/dL (0-1.0)
--- NOTE | 2021-11-07 07:54 | PROVIDER PROGRESS NOTE ---
Assessment/Plan - Problem List (1) Acute respiratory failure with hypoxia Assessment/Plan: Likely secondary to pneumonia. Patient was recently sick with COVID-19 and recovered 3 weeks ago. This could also be contributing to the patient's hypoxia. On room air his oxygen saturation drops into the high 80s. He requires 6 L of oxygen via nasal cannula to maintain his oxygen saturation greater than 90 with the slightest activity. He is mildly conversationally dyspneic On Rocephin 1 g IV daily Azithromycin 500 mg IV daily. Dexamethasone 6 mg IV daily. Will attempt oxygen desaturation study again tomorrow. (2) Pneumonia Assessment/Plan: On room air his oxygen saturation drops into the high 80s. He requires 6 L of oxygen via nasal cannula to maintain his oxygen saturation greater than 90 with the slightest activity. He is mildly conversationally dyspneic On Rocephin 1 g IV daily Azithromycin 500 mg IV daily. Dexamethasone 6 mg IV daily. Will attempt oxygen desaturation study again tomorrow. - Current Meds Current Meds: Current Medications Generic Name Dose Route Start Last Admin Trade Name Freq PRN Reason Stop Dose Admin Acetaminophen 650 mg 11/05/21 11:21 11/05/21 20:15 Acetaminophen 325 Mg Tablet PO 650 mg Q4HR PRN Administration Pain 1 to 4 Dexamethasone 6 mg 11/05/21 12:00 11/06/21 09:05 Dexamethasone 4 Mg/Ml Vial IVP 6 mg DAILY [facility] Administration Enoxaparin Sodium 100 mg 11/05/21 13:00 11/06/21 20:54 Enoxaparin 100 Mg/Ml Syringe SUBQ 100 mg BID [facility] Administration Ceftriaxone Sodium 1 gm/ 100 mls @ 200 mls/hr 11/05/21 12:00 11/06/21 09:40 Sodium Chloride IV Infused DAILY [facility] Infusion Azithromycin 500 mg/ Sodium 250 mls @ 250 mls/hr 11/05/21 13:00 11/06/21 10:10 Chloride IV 11/07/21 09:59 Infused DAILY [facility] Infusion Ibuprofen 400 mg 11/06/21 20:09 11/07/21 05:26 Ibuprofen 400 Mg Tablet PO 400 mg Q6HR PRN Administration PAIN Oxycodone HCl 5 mg 11/05/21 11:21 11/06/21 10:31 Oxycodone 5 Mg Tablet PO 5 mg Q4HR PRN Administration Pain 5 to 7 Sodium Chloride 10 ml 11/05/21 17:00 11/07/21 01:26 Sodium Chloride Flush 0.9% 10 Ml Syringe IVP 10 ml 0100,0900,1700 [facility] Administration Temazepam 15 mg 11/06/21 20:09 11/06/21 21:14 Temazepam 15 Mg Capsule PO 15 mg QPM PRN Administration Insomnia - Lab Result Fish Bone Diagrams: 11/07/21 05:18 11/07/21 05:18 Subjective - Subjective Patient Reports: Other (Patient was just returning to the bed from the bathroom at time of exam. He appeared slightly dyspneic. He denied chest pain, abdominal pain, fever or chills. He was very eager to go home.) Objective Vital Signs: Vital Signs - 24 hr 11/06/21 11/07/21 16:24 00:00 Temperature 36.4 C L 36.4 C L Heart Rate [ 71 57 L Brachial] Respiratory 20 20 Rate Blood Pressure 113/62 104/57 L [Right Brachial artery] O2 Saturation 96 94 Oxygen O2 Source Nasal cannula Oxygen Flow Rate 2 I&O (Last 24 Hrs): Intake and Output Totals x24h 11/05/21 11/06/21 11/07/21 23:59 23:59 23:59 Intake Total 4127.630 1270.333 200 Balance 8052.151 5135.333 200 General: Alert, Oriented x3, No acute distress HEENT: PERRLA, EOMI Neck: Supple, No JVD Neuro: Alert, Oriented Times 3 Cardiovascular: Regular rate, No murmurs Respiratory: Chest non-tender, Other (Dyspnea. Mild crackles in lung bases.) Abdomen: Normal bowel sounds, Soft Extremities: No clubbing, No cyanosis, No edema, No tenderness/swelling Skin: No rashes, No breakdown, No significant lesion - Results Results: Laboratory Results WBC 14.9 x10^3/uL (4.8-10.8) H 11/07/21 05:18 RBC 3.56 10^6/uL (4.70-6.10) L 11/07/21 05:18 Hgb 12.1 g/dL (14.0-18.0) L 11/07/21 05:18 Hct 35.7 % (42.0-52.0) L 11/07/21 05:18 MCV 100.3 fL (80.0-94.0) H 11/07/21 05:18 MCH 34.0 pg (27.0-31.0) H 11/07/21 05:18 MCHC 33.9 g/dL (32.0-36.0) 11/07/21 05:18 RDW 13.8 % (12.0-15.0) 11/07/21 05:18 Plt Count 255 10^3/uL (130-450) 11/07/21 05:18 MPV 10.9 fL (7.4-11.4) 11/07/21 05:18 Neut # (Auto) 12.9 10^3/uL (1.5-6.6) H 11/07/21 05:18 Lymph # (Auto) 1.4 10^3/uL (1.5-3.5) L 11/07/21 05:18 [place] # (Auto) 0.5 10^3/uL (0.0-1.0) 11/07/21 05:18 Eos # (Auto) 0.0 10^3/uL (0.0-0.7) 11/07/21 05:18 Baso # (Auto) 0.0 10^3/uL (0.0-0.1) 11/07/21 05:18 Absolute Nucleated RBC 0.00 x10^3/uL 11/07/21 05:18 Nucleated RBC % 0.0 /100WBC 11/07/21 05:18 PT 14.2 secs (9.9-12.6) H 11/05/21 11:38 INR 1.3 (0.8-1.2) H 11/05/21 11:38 D-Dimer 515.9 ng/mL (200.0-255.0) H 11/05/21 11:38 Sodium 139 mmol/L (135-145) 11/07/21 05:18 Potassium 4.0 mmol/L (3.5-5.0) 11/07/21 05:18 Chloride 105 mmol/L (101-111) 11/07/21 05:18 Carbon Dioxide 27 mmol/L (21-32) 11/07/21 05:18 Anion Gap 7.0 (6-13) 11/07/21 05:18 BUN 13 mg/dL (6-20) 11/07/21 05:18 Creatinine 0.8 mg/dL (0.6-1.2) 11/07/21 05:18 Estimated GFR (MDRD) 98 (>89) 11/07/21 05:18 Glucose 133 mg/dL (70-100) H 11/07/21 05:18 Lactic Acid 1.5 mmol/L (0.5-2.2) 11/05/21 09:40 Calcium 8.8 mg/dL (8.5-10.3) 11/07/21 05:18 Total Bilirubin 0.9 mg/dL (0.2-1.0) 11/05/21 09:40 AST 32 IU/L (10-42) 11/05/21 09:40 ALT 42 IU/L (10-60) 11/05/21 09:40 Alkaline Phosphatase 84 IU/L (42-121) 11/05/21 09:40 Total Creatine Kinase 48 IU/L (22-269) 11/05/21 11:38 Troponin I High Sens 4.4 ng/L (2.3-19.7) 11/05/21 11:38 C-Reactive Protein < 1.0 mg/dL (0-1.0) 11/07/21 05:18 Total Protein 7.0 g/dL (6.7-8.2) 11/05/21 09:40 Albumin 3.6 g/dL (3.2-5.5) 11/05/21 09:40 Globulin 3.4 g/dL (2.1-4.2) 11/05/21 09:40 Albumin/Globulin Ratio 1.1 (1.0-2.2) 11/05/21 09:40 Lipase 31 U/L (22-51) 11/05/21 09:40 Nasal Adenovirus (PCR) NOT DETECTED 11/05/21 09:34 Nasal B. parapertussis DNA (PCR) NOT DETECTED 11/05/21 09:34 Nasal Coronavir 229E PCR NOT DETECTED 11/05/21 09:34 Nasal Coronavir HKU1 PCR NOT DETECTED 11/05/21 09:34 Nasal Coronavir NL63 PCR NOT DETECTED 11/05/21 09:34 Nasal Coronavir OC43 PCR NOT DETECTED 11/05/21 09:34 Nasal Enterovir/Rhinovir PCR NOT DETECTED 11/05/21 09:34 Nasal Influenza B PCR NOT DETECTED 11/05/21 09:34 Nasal Influenza A PCR NOT DETECTED 11/05/21 09:34 Nasal Parainfluen 1 PCR NOT DETECTED 11/05/21 09:34 Nasal Parainfluen 2 PCR NOT DETECTED 11/05/21 09:34 Nasal Parainfluen 3 PCR NOT DETECTED 11/05/21 09:34 Nasal Parainfluen 4 PCR NOT DETECTED 11/05/21 09:34 Nasal RSV (PCR) NOT DETECTED 11/05/21 09:34 Nasal B.pertussis DNA PCR NOT DETECTED 11/05/21 09:34 Nasal C.pneumoniae (PCR) NOT DETECTED 11/05/21 09:34 Shane Human Metapneumo PCR NOT DETECTED 11/05/21 09:34 Nasal M.pneumoniae (PCR) NOT DETECTED 11/05/21 09:34 Nasal SARS-CoV-2 (PCR) NOT DETECTED 11/05/21 09:34 ABX Reporting Has patient been on IV antibiotics over the past 48 hours?: Yes
[2021-11-07] MEDS: ENOXAPARIN 100 MG/ML SYRINGE SUBQ SCH ×2 (09:34→21:07)
[2021-11-07] MEDS: cefTRIAXone 1 GM in SODIUM CHLORIDE 0.9% MINIBAG 100 ML IV SCH (09:34)
[2021-11-07] MEDS: DEXAMETHASONE 4 MG/ML VIAL IVP SCH (09:35)
[2021-11-07] MEDS: AZITHROMYCIN INJ 500 MG in SODIUM CHLORIDE 0.9% 250 ML IV SCH (10:29)
[2021-11-07] MEDS: FOLIC ACID 1 MG TABLET PO SCH (16:03)
[2021-11-07] MEDS: TEMAZEPAM 15 MG CAPSULE PO PRN (21:07)
[2021-11-08] MEDS: SODIUM CHLORIDE FLUSH 0.9% 10 ML SYRINGE IVP SCH ×2 (00:57→06:38)
[2021-11-08 06:10] LABS: BASOPHILS % (AUTO) 0.3 %; HGB - HEMOGLOBIN 12.5 g/dL (14.0-18.0); LYMPHOCYTES # (AUTO) 1.9 10^3/uL (1.5-3.5); LYMPHOCYTES % (AUTO) 14.8 %; MEAN CORPUSCULAR HEMOGLOBIN 34.1 pg (27.0-31.0); MEAN CORPUSCULAR HGB CONC 33.8 g/dL (32.0-36.0); MEAN CORPUSCULAR VOLUME 100.8 fL (80.0-94.0); MEAN PLATELET VOLUME 10.8 fL (7.4-11.4); MONOCYTES # (AUTO) 0.3 10^3/uL (0.0-1.0); MONOCYTES % (AUTO) 2.6 %; NEUTROPHILS # (AUTO) 10.2 10^3/uL (1.5-6.6); NEUTROPHILS % (AUTO) 81.1 %; PLT - PLATELET COUNT 241 10^3/uL (130-450); RED BLOOD COUNT 3.67 10^6/uL (4.70-6.10); RED CELL DISTRIBUTION WIDTH 13.9 % (12.0-15.0); WHITE BLOOD COUNT 12.6 x10^3/uL (4.8-10.8)
[2021-11-08 06:30] LABS: BUN - BLOOD UREA NITROGEN 16 mg/dL (6-20); CARBON DIOXIDE - CO2 26 mmol/L (21-32); CHLORIDE 103 mmol/L (101-111); CREATININE 0.7 mg/dL (0.6-1.2); GFR - MDRD 114 (>89); GLUCOSE 102 mg/dL (70-100); POTASSIUM 4.1 mmol/L (3.5-5.0); SODIUM 136 mmol/L (135-145)
[2021-11-08] MEDS: cefTRIAXone 1 GM in SODIUM CHLORIDE 0.9% MINIBAG 100 ML IV SCH (06:37)
[2021-11-08] MEDS: ENOXAPARIN 100 MG/ML SYRINGE SUBQ SCH (06:37)
[2021-11-08] MEDS: DEXAMETHASONE 4 MG/ML VIAL IVP SCH (06:38)
[2021-11-08] MEDS: FOLIC ACID 1 MG TABLET PO SCH (06:38)
[2021-11-08 06:40] LABS: CRP - C-REACTIVE PROTEIN < 1.0 mg/dL (0-1.0)
--- NOTE | 2021-11-08 10:40 | DISCHARGE SUMMARY ---
Discharge Summary Admit Date: 11/05/21 Discharge Date: 11/08/21 Discharging Provider: Janel Wilkestu Code Status: Attempt Resuscitation Condition at Discharge: Stable Discharge Disposition: 01 Home, Self Care - DIAGNOSES Admission Diagnoses: Hypoxemia Pneumonia History of 2019 Novel Coronavirus Disease Immunocompromised state due to drug therapy Discharge Diagnoses with Status of Each Condition: Hypoxemia: Acute/subacute. Likely secondary to pneumonia and sequelae to COVID- 19 infection. Patient discharged with supplemental oxygen. Requiring between 3 and 6 L. Pneumonia: Acute. Sputum culture grew staph aureus. Patient treated with Rocephin in the hospital and discharged with doxycycline 150 mg p.o. twice daily x7 days. History of 2019 Novel Coronavirus Disease: Immunocompromised state due to drug therapy - HPI History of Present Illness: The patient lives in [facility] and is here visiting [facility] for his time share that he comes to every quarter. He became ill with Covid about 4 weeks ago. Had it for about a week when he self tested from an [id number] test and Covid positive. At that time he had severe fever, muscle aches, loss of smell and taste, stopped eating. Lost about 28 pounds. Appetite is slowly coming back. The cough is been nonstop. And he has been exhausted and short of breath. No real phlegm production. is been trying to convince him to be seen for quite some time but he drove to the [place] for vacation, and then decided to check his pulse oximeter here. When he initially checked it it was 78%. Sometimes he can get it up to 85 to 88%. Today he was so short of breath he finally came in. In triage he was with labored respirations. O2 sat was 80% and oxygen was placed immediately. He smokes on a daily basis. Stop smoking the day he got sick with Covid. He started smoking at the age of 30 and smokes a pack a day. He is also a cocaine abuser in the past. Started snorting cocaine at the age of 16. Then he started smoking cocaine at the age of 30 and smoked daily until the age of 50. He is 11 years past that. He has psoriatic arthritis and takes methotrexate on a daily basis with folic acid.He is unvaccinated as a conscious decision. His 's cousin who is a crude oil driver got the Covid vaccine and 3 days later. He just "dropped ". Pathology showed that it was related to hypercoagulable disorder from the vaccine. Ever since then the family's been pretty rattled and he just felt like he was not a candidate nor his . In the emergency room temperature was 36.5. Heart rate 66. Respirations 30. Blood pressure 137/78. O2 sat 80%. Chest x-ray shows bilateral infiltrates. He is SARS Covid negative on our respiratory PCR panel. White cell count is normal at 6.7. INR is 1.3. D-dimer 515. - HOSPITAL COURSE Hospital Course: Patient's oxygen saturation was as low as 78% on room air at time of admission. Throughout his hospital stay he required between 2 and 6 L of oxygen to maintain his oxygen saturation greater than 90% On the day of discharge an oxygen desaturation study was done. He was hypoxic at rest with an oxygen saturation of 83%. On 2 L via nasal cannula his oxygen saturation was 87% at rest. He required 3 L of oxygen at rest to maintain oxygen saturation at 91%. On 3 L with exertion his oxygen saturation was 84%. On 6 L his oxygen saturation was 92%. His white blood cell count was as high as 14.9. He was treated with Rocephin for pneumonia. Sputum cultures subsequently grew staph aureus. As a result the patient was prescribed doxycycline 100 mg p.o. twice daily x7 days. He was advised not to over exert himself while at home. He was encouraged to use the incentive spirometer as often as possible. He was discharged in stable condition. He may follow-up with his primary care physician within 7 to 10 days. - ALLERGIES Allergies/Adverse Reactions: Allergies Allergy/AdvReac Type Severity Reaction Status Date / Time No Known Drug Allergies Allergy Verified 11/05/21 08:55 - MEDICATIONS Home Medications: Ambulatory Orders Medication Instructions Recorded Confirmed Atorvastatin [Lipitor] 20 mg PO QPM 11/05/21 11/05/21 Folic Acid 2 mg PO SUMOTUWEFRSA 11/05/21 11/05/21 Ibuprofen [Motrin] 600 mg PO TID PRN 11/05/21 11/05/21 Methotrexate [Methotrexate Sodium] 15 mg PO TH 11/05/21 11/05/21 Doxycycline Monohydrate 150 mg PO BID 7 Days #14 cap 11/08/21 - PHYSICAL EXAM AT DISCHARGE General Appearance: positive: Alert, Mild distress Eyes Bilateral: positive: PERRL, EOMI ENT: positive: No signs of dehydration Neck: positive: No JVD, Trachea midline Respiratory: positive: Chest non-tender, Other (Mild crackles at lung bases) Cardiovascular: positive: Regular rate & rhythm, No murmur Abdomen: positive: Non-tender, No organomegaly, Nml bowel sounds, No distention. negative: Guarding, Rebound Back: positive: Nml inspection Skin: positive: Color nml, No rash, Warm, Dry Extremities: positive: Non-tender, Full ROM, Nml appearance, No pedal edema Neurologic/Psychiatric: positive: Oriented x3, Mood/affect nml - LABS Result Diagrams: 11/08/21 05:36 11/08/21 05:36 - TIME SPENT Time Spent in Discharge (Minutes): 20
--- NOTE | 2021-11-08 10:43 | Discharge Plan ---
Discharge Plan Problem Reviewed?: Yes Disposition: Home, Self Care Condition: Stable Prescriptions: Doxycycline Monohydrate 150 mg PO BID 7 Days #14 cap Diet: Regular Activity Restrictions: Activity as Tolerated Weight Bearing: Full Weight Instruction Topics: Oxygen Use Safety, Oxygen Home Use, Oxygen Home Dc Health Concerns: You were admitted on 11/05/2021 with shortness of breath for which work-up showed that you had pneumonia. At the time of presentation you had an oxygen saturation of 78% and required supplemental oxygen. Throughout your hospital stay you have required a range between 3 and 6 L of oxygen at rest and all with activity to maintain your oxygen saturation greater than 90%. You were treated with Rocephin while in the hospital. Sputum culture grew staph aureus. Your white blood cell count improved over the course of your hospital stay. Upon discharge you were prescribed doxycycline 150 mg to take 1 capsule p.o. twice daily for 7 days. You have been advised not to overexert yourself. You may use 3 L of oxygen while at rest and increase up to 6 L with activity. You have been encouraged to use the incentive spirometer as often as possible. If your breathing worsens do not hesitate to seek medical attention. You may follow-up with your primary care physician within 7 days or as needed. You expressed understanding to the above plan and are in agreement. You are discharged in stable condition. No Smoking: If you smoke, Please STOP! Call for help.
[2021-11-08 11:30] VITALS: BP 114/59
== END 2021-11-08 11:00 | disposition home or self-care (01) | DRG 177 ==
LOC: ED 08:15 → ICU 11:21 → MS2 12:12
PROVIDERS: ADMIT Specialist; ATTEND Internal Medicine
DX: J15.211 Pneumonia due to Methicillin susceptible Staphylococcus aureus (principal); J96.01 Acute respiratory failure with hypoxia; D84.821 Immunodeficiency due to drugs; U09.9 Post COVID-19 condition, unspecified; L40.50 Arthropathic psoriasis, unspecified; Z79.899 Other long term (current) drug therapy; F31.9 Bipolar disorder, unspecified; F42.9 Obsessive-compulsive disorder, unspecified; Z87.891 Personal history of nicotine dependence
CPT/HCPCS: 36415; 71260; 80048; 82550; 84484; 85025; 85379; 85610; 86140; 87070; 87181; 87205; 94761; A9270; J1650; J7120; Q9967; 0202U; 80053; 83605; 83690; 87040; 99284; 99285